=== PATIENT | male | born 1970 | race Caucasian/White ===

== ENCOUNTER 2017-06-17 15:34 | Emergency (ER) | payer MEDICAID, OTHER ==
[2017-06-17 15:34] VITALS: BMI 22.8
[2017-06-17 15:48] VITALS: RESP 18
--- NOTE | 2017-06-17 16:26 | C.PDOC ---
History Of Present Illness 47 y/o male with hx dvt in right leg, on xarelto, with an ivc filter, compliant with medication, c/o pain and swelling to right calf and right knee x 4 days with swelling. 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 pt sts swelling is worse in day, but then he puts legs up and it decreases. is less today than yesterday. no recent prolonged immobilization Time Seen by Provider: 06/17/17 16:01 Chief Complaint (Nursing): Lower Extremity Problem/Injury History Per: Patient History/Exam Limitations: no limitations Onset/Duration Of Symptoms: Days (4) Current Symptoms Are (Timing): Better Severity: Mild Recent travel outside of the [place]: No Past Medical History Reviewed: Historical Data, Nursing Documentation, Vital Signs Vital Signs: Last Vital Signs Temp 97.7 F 06/17/17 18:13 Pulse 62 06/17/17 18:13 Resp 18 06/17/17 18:13 BP 112/70 06/17/17 18:13 Pulse Ox 100 06/17/17 18:13 - Medical History PMH: Deep Vein Thrombosis, HTN, Hypercholesterolemia - [facility] EXCISION OF PELVIC SUBCU/FASCIA, OPEN APPROACH, DIAGN (07/06/15) RESTRICT OF INF VENA CAVA WITH INTRALUM DEV, PERC APPROACH (07/06/15) Family History: States: Unknown Family Hx - Social History Hx Alcohol Use: Yes Hx Substance Use: No - Immunization History Hx Tetanus Toxoid Vaccination: No Hx Influenza Vaccination: No Hx Pneumococcal Vaccination: No Review Of Systems Constitutional: Negative for: Fever, Chills Cardiovascular: Negative for: Chest Pain Respiratory: Negative for: Cough, Shortness of Breath, SOB with Excertion, Pleuritic Pain Gastrointestinal: Negative for: Abdominal Pain Genitourinary: Negative for: Dysuria ED Course And Treatment O2 Sat by Pulse Oximetry: 98 Medical Decision Making Medical Decision Making: pt with hx dvt, on xarelto, with right knee and calf pain with some swelling x 4 days. swelling and warmth to right tibial tuberosity, enlarged with trace ptiting edema. . will d/c with return to ER tomorrow at 8 sm for vasular study , Disposition Counseled Patient/Family Regarding: Diagnosis, Need For Followup - Disposition Disposition: HOME/ ROUTINE Disposition Time: 18:06 Condition: STABLE Additional Instructions: Please keep legs elevated tonight, Apply cold compress to right knee for 20 minutes at a time, every 4 hours. Take Tylenol or Ibuprofen for pain. yOU SHOULD NOT BE KNEELING IN KNEE. RETURN TO ER TOMORROW, WednesdayJUN 18 AT 8 AM FOR A VASCULAR STUDY OF YOUR RIGHT LEG. Forms: [facility] ([place]), General Discharge Instructions - Clinical Impression Clinical Impression: Pain in right lower leg
--- NOTE | 2017-06-17 17:07 | RAD ---
PROCEDURE: Right Knee Radiographs. HISTORY: COMPARISON: None available. FINDINGS: BONES: No acute displaced fracture. JOINTS: No dislocation. JOINT EFFUSION: No significant joint effusion. OTHER FINDINGS: None. IMPRESSION: No acute displaced fracture, dislocation, or significant joint effusion identified. If symptoms persist, or if there is continued clinical concern, x-ray follow-up in 7-10 days should be considered.
[2017-06-17 18:14] VITALS: BP 112/70; PULSE 62; TEMP 97.7
[2017-06-17 22:23] VITALS: O2SAT 98
== END 2017-06-17 18:18 | disposition home or self-care (01) ==
LOC: C.ER 15:34
DX: M79.661 Pain in right lower leg (principal); E78.00 Pure hypercholesterolemia, unspecified; I10 Essential (primary) hypertension; Z86.718 Personal history of other venous thrombosis and embolism